=== PATIENT | female | born 1935 | race Caucasian/White ===

== ENCOUNTER 2022-01-16 13:04 | Outpatient (CLI) | payer MEDICARE ==
[2022-01-17 12:32] LABS: SARS-CoV-2 PCR by NAA Not Detected (NotDetected)
== END 2022-01-16 13:05 | disposition home or self-care (01) ==
LOC: CSHLAB 13:04
PROVIDERS: ATTEND Family Medicine
DX: Z20.822 Contact with and (suspected) exposure to COVID-19 (principal)
CPT/HCPCS: U0003; U0005